=== PATIENT | female | born 1950 | race Caucasian/White ===

== ENCOUNTER 2018-03-14 11:12 | Outpatient (CLI) | payer MEDICARE ==
--- NOTE | 2018-03-14 12:55 | RAD ---
TWO VIEWS LEFT KNEE: Comparison: None. History: Left knee pain. FINDINGS: Two views of the left knee shows no evidence of acute fracture or dislocation. A tiny osteophyte is s een along the medial femorotibial compartment. IMPRESSION: Mild left knee osteoarthritis without acute osseous abnormality. POS: [facility]
--- NOTE | 2018-03-14 12:59 | RAD ---
THREE VIEWS RIGHT KNEE: Comparison: None. History: Osteoarthritis of the right knee. FINDINGS: Two views of the right knee shows no evidence of acute fracture or dislocation. There are moderate os teophytes in the medial femorotibial compartment. No knee effusion is seen. IMPRESSION: Moderate right knee osteoarthritis. POS: [facility]
== END 2018-03-14 11:13 | disposition home or self-care (01) ==
LOC: BICRAD 11:12
PROVIDERS: ATTEND Internal Medicine Rheumatology
DX: M17.0 Bilateral primary osteoarthritis of knee (principal)
CPT/HCPCS: 36415; 80048

== ENCOUNTER 2018-05-24 22:03 | Emergency (ER) | payer MEDICARE ==
[2018-05-24] MEDS ORDERED: Adacel (T-DAP) 0.5 ML SYRINGE ONE (22:34)
== END 2018-05-24 23:00 | disposition home or self-care (01) ==
LOC: SCSER 22:03
DX: S60.311A Abrasion of right thumb, initial encounter (principal); I48.91 Unspecified atrial fibrillation; M81.0 Age-related osteoporosis without current pathological fracture; Z86.73 Personal history of transient ischemic attack (TIA), and cerebral infarction without residual deficits; W26.0XXA Contact with knife, initial encounter
CPT/HCPCS: 90471; 90715

== ENCOUNTER 2018-06-23 11:28 | Outpatient (CLI) | payer MEDICARE ==
--- NOTE | 2018-06-23 13:40 | RAD ---
TWO VIEWS OF THE CHEST: COMPARISON: 11/28/2017. HISTORY: Cough and shortness of breath for a week. FINDINGS: A single view of the chest shows an enlarged but stable cardiomediastinal silhouette. The patient is status post sternotomy for a cardiac valve repair. The pacemaker is unchanged in position. There i s no evidence of consolidation, mass, or pleural effusion. IMPRESSION: No evidence of acute cardiopulmonary disease. POS: [facility]
== END 2018-06-23 11:29 | disposition home or self-care (01) ==
LOC: SCSRAD 11:28
PROVIDERS: ATTEND Nurse Practitioner Family
DX: J40 Bronchitis, not specified as acute or chronic (principal)
CPT/HCPCS: 71046

== ENCOUNTER 2018-09-19 09:15 | Outpatient (CLI) | payer MEDICARE ==
--- NOTE | 2018-09-19 10:10 | ULT ---
Exam: Pelvic ultrasound HISTORY: New onset of right inguinal pain which radiates from lower back. Symptoms have been present for one month. Patient reports history of left ovarian cystic lesion. COMPARISON: Patient reports priors imaging done in [place] which are not available for direct comparison. However , there is a pelvic ultrasound obtained from the [facility] on 11/27/2013 which is available for direct comparison. TECHNIQUE: Multiple grayscale and color Doppler images were obtained in a transabdominal and transvag inal pelvic ultrasound. Spectral analysis of the Doppler waveforms of the ovaries were performed. FINDINGS: CERVIX: Nabothian cyst formation is demonstrated. UTERUS: Uterus demonstrates mild heterogeneity without focal mass appreciated. ENDOMETRIAL STRIPE: On transabdominal imaging, the endometrial stripe measures 0.5 cm in thickness, b ut on endovaginal imaging, the endometrial stripe measures larger in thickness at 0.9 cm. This is abnormal in thickness for a postmenopausal female patient. In addition, there is a small amount of fl uid within the endometrial canal which is also abnormal in a postmenopausal patient. No free fluid is present. RIGHT OVARY: Not visualized. There is shadowing in the right adnexal region secondary to loops of bow el. LEFT OVARY:A 2.4 cm left ovarian cystic lesion is present. A cystic lesion was also present in the le ft ovary on prior study in 2013 which measured 2 cm. There is limited Doppler evaluation of left ovary, but there is suggestion of flow within the left ovary. IMPRESSION: 1. Abnormal thickening of the endometrium with tiny amount of fluid in the endometrial canal which is also abnormal in a postmenopausal female patient. Endometrial carcinoma cannot be excluded based on this examination. 2. Nonvisualization the right ovary. 3. Left ovarian cyst measuring 2.4 cm. This was also present on prior exam in 2013 although is slight ly larger in size.
== END 2018-09-19 09:16 | disposition home or self-care (01) ==
LOC: SCSULT 09:15
PROVIDERS: ATTEND Family Medicine
DX: R10.2 Pelvic and perineal pain (principal); R93.89 Abnormal findings on diagnostic imaging of other specified body structures; N83.202 Unspecified ovarian cyst, left side
CPT/HCPCS: 76856